=== PATIENT | male | born 1975 | race Caucasian/White ===

== ENCOUNTER 2016-06-20 06:38 | Inpatient (IN) | payer OTHER ==
--- NOTE | 2016-06-19 11:23 | PREOPHP ---
DATE OF ADMISSION: 06/20/2016 TYPE OF CONSULTATION: Preoperative internal medicine consultation/medical history and physical REASON FOR CONSULTATION: Consultation requested by Dr. Boyd Boogie for medical evaluation and lawrence arance of a 40-year-old gentleman about to undergo surgery on his lumbar spine. Thank you, Dr. Boogie, for allowing us to participate in care of this patient. HISTORY OF PRESENT ILLNESS: Chriss Echeverria a 40-year-old gentleman has had 2 prior back surgeries, cur rently being admitted for a third at a different level. Other than his back, he has been relatively healthy. He has had no medical hospitalizations. Also has not had any other surgeries other than his back surgeries. He has fractured his right ankle and as mentioned above, has had no medical hos pitalizations. The patient is being treated for hypertension, currently taking lisinopril HCT 20/ as well as tramadol. ALLERGIES: HE IS NOT ALLERGIC TO ANY MEDICATIONS. SOCIAL HISTORY: The patient is , has 2 children, no grandchildren. He smokes about a pack of cigarettes a day. He has been smoking for 20 years. Alcohol socially. Does not drink coffee. He is employed and usually has no difficulty sleeping at night. FAMILY HISTORY: Both parents are alive, father 70, mother 65. Mother is healthy. Father is a type 2 diabetic and 1 brother is in good health. Family history of diabetes, cancer and hypertension. REVIEW OF SYSTEMS HEENT: Denies any significant headaches. CARDIORESPIRATORY: Denies any chest pain, shortness of breath. GASTROINTESTINAL: No melena or hematemesis. GENITOURINARY: No urgency, frequency. MUSCULOSKELETAL: Positive for back pain. NEUROPSYCHIATRIC: Unremarkable. GENERAL HEALTH: As above. PHYSICAL EXAMINATION: VITAL SIGNS: The patient's blood pressure was 120/70, pulse was 89 and regular, respirations were 1 8, temperature 98.3. Height 5 feet 8 inches, weight 284 pounds. GENERAL: The patient was noted to be a well-developed, well-nourished male, alert and cooperative, in no apparent acute distress, oriented to time, place, and person. HEENT: Head was atraumatic. Eyes: Pupils were equal, reactive to light and accommodation. Fundi were benign. Tympanic membranes were unremarkable. Nose was negative. Mouth was unremarkable. Fa ir oral hygiene was present. NECK: Supple without any rigidity. Trachea was midline. Thyroid was unremarkable. Neck veins wer e flat. Carotid pulses were equal. No bruits were heard. BACK: Revealed scar from prior surgeries. CHEST: Symmetrical. BREASTS AND AXILLARY: Did not reveal any masses. LUNGS: Clear to percussion and auscultation. HEART: PMI is fifth intercostal space at the midclavicular line. A regular sinus rhythm was noted. No significant murmurs, rubs, or gallops being elicited. ABDOMEN: Soft, good bowel sounds were noted. No significant organomegaly, masses, or tenderness. GENITALIA: Normal male external genitalia. RECTAL AND PROSTATIC: Per PCP. EXTREMITIES: Did not reveal any clubbing, edema or cyanosis. Peripheral pulses were physiologic. SKIN: Moist and warm without any eruptions. No gross lymphadenopathy was noted. NEUROLOGIC: Grossly intact. IMPRESSION 1. Lumbar disk disease L2 to L3, post-lumbar spine surgery x2 in the past different levels. 2. Hypertension. 3. Metabolic syndrome with mild hepatic dysfunction. 4. Degenerative joint disease. 5. Stable health. LABORATORY DATA: Review of laboratory and other data revealed the following: The patient's wet chemistry analyst ry panel, most recent one revealed normal electrolytes, glucose, BUN, creatinine. Liver function te sts were somewhat elevated, but improving. The patient had been drinking a little bit too much. Mo st recent AST was 102, ALT 161, on the way down several days prior to his scheduled surgery. Serum iron was normal. CBC, sed rate, UA, PT, PTT were normal. His EKG was normal as was his chest x-ray . DISCUSSION: Dr. Boogie, I see no contraindication in this patient undergoing current proposed oh terell under desired form of anesthesia. I feel he is a suitable candidate at this particular point i n time, and will be more than happy to follow him along with you during his stay at [facility]. Thank you again, Dr. Boogie, for allowing us to participate in care of this patient. Dictated By: YESSI CLAUDIO/ARNOLDO Conf#: [id number] DID#: [id number]
[2016-06-20] VITALS (27 sets, daily range): BP systolic 80–141; BP diastolic 51–85; PULSE 90–109; RESP 15–25; Ht 172.7 cm; Wt 127.0 kg
[~2016-06-20] VITALS: Ht 172.7 cm; Wt 127.0 kg
[~2016-06-20 06:38] MED LIST: LISI20TA11 PO; MELO-109 PO; TRAM50TA2 PO
[2016-06-20] MEDS ORDERED: LACTATED RINGER'S 1,000 ML IV* SCH ×2 (07:00)
[2016-06-20] MEDS ORDERED: CEFAZOLIN 2 GM/50 ML (PMX) 50 ML IVPB ONE (07:00)
[2016-06-20] MEDS ORDERED: HYD25 PO (07:48)
--- NOTE | 2016-06-20 09:23 | HPN ---
Date/Time of Note Date/Time of Note DATE: 06/20/16 TIME: 09:22 Interval H&P Admission Note Pt. seen H&P reviewed: No system changes FIDEL LONG MD Jun 20, 2016 09:23
[2016-06-20] MEDS ORDERED: BUPIVACAINE 0.25% (MPF) 10 ML 10 ML VIAL ONE (09:24)
[2016-06-20] MEDS ORDERED: POLYMYXIN/BACITRACIN 1L IRRIG ONE (09:24)
[2016-06-20] MEDS ORDERED: GELATIN SIZE 100 SPONGE ONE (09:24)
[2016-06-20] MEDS ORDERED: THROMBIN 5000 UNIT VIAL ONE (09:24)
[2016-06-20] MEDS ORDERED: MIDAZOLAM 1 MG/ML 2 ML INJ ONE (09:52)
[2016-06-20] MEDS ORDERED: PHENYLephrine (100 MCG/ML) 5ML SYG ONE ×3 (10:01→11:33)
[2016-06-20] MEDS ORDERED: ROCURONIUM 50 MG INJ ONE (10:25)
[2016-06-20] MEDS ORDERED: LIDOCAINE 2% (SDV) 5 ML INJ ONE (10:25)
[2016-06-20] MEDS ORDERED: SUCCINYLCHOLINE CHLORIDE 100 MG/5 ML SYG IV ONE (10:25)
[2016-06-20] MEDS ORDERED: PROPOFOL 40 ML ONE (10:25)
[2016-06-20] MEDS ORDERED: GELATIN SIZE 100 SPONGE TOP ONE (10:35)
[2016-06-20] MEDS: CEFAZOLIN 1 GM INJ ONE ×2 (10:35→13:44)
[2016-06-20] MEDS ORDERED: THROMBIN 5000 UNIT VIAL TOP ONE (10:35)
[2016-06-20] MEDS ORDERED: BUPIVACAINE 0.25% (MPF) 10 ML 10 ML VIAL INJ ONE (10:35)
[2016-06-20] MEDS ORDERED: HEPARIN 1000 UNITS/ML 10 ML INJ ONE (10:39)
[2016-06-20] MEDS ORDERED: METOCLOPRAMIDE 10 MG INJ ONE (10:52)
[2016-06-20] MEDS ORDERED: ONDANSETRON 4 MG INJ ONE (10:52)
[2016-06-20] MEDS ORDERED: HYDROmorphONE 2 MG/ML SYG ONE (10:52)
[2016-06-20] MEDS ORDERED: FAMOTIDINE 20 MG INJ ONE (10:52)
[2016-06-20] MEDS ORDERED: DEXAMETHASONE 4 MG/ML 1 ML INJ ONE (10:52)
[2016-06-20] MEDS ORDERED: GLYCOPYRROLATE 1 MG INJ ONE (10:52)
[2016-06-20] MEDS ORDERED: NEOSTIGMINE 3 MG/3 ML SYRINGE ONE (10:52)
[2016-06-20] MEDS ORDERED: CEFAZOLIN 1 GM INJ ONE (13:33)
--- NOTE | 2016-06-20 14:31 | RADRPT ---
PROCEDURE: Intraoperative imaging of the lumbar spine with fluoroscopy. CLINICAL INDICATION: Back pain. Intraoperative. TECHNIQUE: 8 images of the lumbar spine were obtained in the operating room with an image intensif ier. No radiologist was in attendance. 40.3 seconds of fluoroscopy time was used. COMPARISON: No prior study is available for comparison. FINDINGS: For the purposes of this report, the last apparent true disc level is considered to be L5-S1. Based on this, pedicle screws are inserted at L2 and L3. An intervertebral cage is present at the L2-3 l evel. IMPRESSION: 1. Intraoperative imaging of the lumbar spine. RPTAT: QQ .Lee De La Cruz MD, MD Date Time Electronically viewed and signed by .Lee De La Cruz MD, on 06/20/2016 14:31 .R/
[2016-06-20] MEDS: FENTAnyl 50 MCG/ML VIAL IV PRN ×2 (14:56→15:14)
[2016-06-20] MEDS: HYDROmorphONE (0.2 MG/ML) 10ML SYG IV PRN ×2 (14:57→15:14)
[2016-06-20] MEDS ORDERED: MEPERIDINE 25 MG INJ IV PRN (15:00)
[2016-06-20] MEDS ORDERED: HYDROmorphONE (0.2 MG/ML) 10ML SYG IV PRN ×2 (15:00)
[2016-06-20] MEDS ORDERED: DIPHENHYDRAMINE 50 MG INJ IV PRN (15:00)
[2016-06-20] MEDS ORDERED: PROCHLORPERAZINE 10 MG INJ IV PRN (15:00)
[2016-06-20] MEDS ORDERED: ONDANSETRON 4 MG INJ IV PRN ×2 (15:00→15:30)
[2016-06-20] MEDS ORDERED: FENTAnyl 50 MCG/ML VIAL IV PRN ×2 (15:00)
[2016-06-20] MEDS: DEXTROSE 5%-0.45% NACL 1,000 ML IV SCH ×3 (15:12→23:18)
--- NOTE | 2016-06-20 15:12 | OPPN ---
Date/Time of Note Date/Time of Note DATE: 06/20/16 TIME: 15:07 Operative/Procedure Note Pre-Operative Diagnosis Recurrent disc herniation at L2-3 on the left Post laminectomy syndrome Post-Operative Diagnosis Same Procedure Transforaminal lumbar interbody fusion L2-3 with pedicle screws and rods and interbody cage Redo decompressive laminectomy L2 Revision of scar (10 cm) Intraoperative fluoroscopy Intraoperative nerve monitoring (4 hours) Surgeon: FIDEL LONG MD Lamination Technician: ADELAIDE WAHL Anesthesiologist: CINDY CORCORAN MD Findings At surgery a small recurrent disc herniation at L2-3 on the left was confirmed Blood Usage/Administration 150 cc of Cell Saver blood was given Implants/Grafts 4 5.5 mm in diameter 40 mm long variable angle RTI pedicle screws 2 lordotic rods (one 40 mm one 50 mm) 11 mm peek interbody cage at L2-3 Cynthia 3 bone graft substitute Estimated blood loss: other Drains 2 medium Hemovac drains employed Specimens L2-3 disc material Complications: None Anesthesia type: general FIDEL LONG MD Jun 20, 2016 15:12
[2016-06-20] MEDS ORDERED: HYDROmorphONE 0.2 MG/ML PCA ONE (15:20)
[2016-06-20] MEDS: HYDROmorphONE 0.2 MG/ML PCA IV SCH (15:27)
[2016-06-20] MEDS ORDERED: AL HYDROX/MG HYDROX/SIMETH 30 ML CUP PO PRN (15:30)
[2016-06-20] MEDS ORDERED: ZOLPIDEM 5 MG TAB PO PRN (15:30)
[2016-06-20] MEDS ORDERED: DIAZEPAM 5 MG TAB PO PRN (15:30)
[2016-06-20] MEDS ORDERED: DIAZEPAM 5 MG/ML SYG IM PRN (15:30)
[2016-06-20] MEDS ORDERED: NACL 0.9% 3 ML SYG IV SCH (15:30)
[2016-06-20] MEDS ORDERED: CEPASTAT LOZENGE MT PRN (15:30)
[2016-06-20] MEDS ORDERED: ACETAMINOPHEN 325 MG TAB PO PRN (15:30)
[2016-06-20] MEDS ORDERED: BETHANECHOL 25 MG TAB PO PRN (15:30)
[2016-06-20] MEDS ORDERED: PROCHLORPERAZINE 10 MG TAB PO PRN (15:30)
[2016-06-20] MEDS ORDERED: TRIMETHOBENZAMIDE 100 MG/ML VIAL IM PRN (15:30)
[2016-06-20] MEDS ORDERED: HYDROCODONE/APAP (5/325) TAB PO PRN (15:30)
[2016-06-20] MEDS ORDERED: DIPHENHYDRAMINE 50 MG CAP PO PRN (15:30)
[2016-06-20] MEDS ORDERED: NALOXONE (0.4 MG/ML) INJ IV PRN (15:30)
--- NOTE | 2016-06-20 16:06 | OPR ---
DATE OF OPERATION: 06/20/2016 PREOPERATIVE DIAGNOSES: 1. Recurrent disk herniation, L2-L3 on the left. 2. Post-laminectomy syndrome. POSTOPERATIVE DIAGNOSES: 1. Recurrent disk herniation L2-3 on the left. 2. Post-laminectomy syndrome. OPERATION PERFORMED: 1. Transforaminal lumbar interbody fusion, L2-L3, with pedicle screws and rods and interbody cage. 2. Re-do decompressive laminectomy at L2. 3. Revision of scar (10 cm). 4. AP and lateral intraoperative fluoroscopy. 5. Intraoperative nerve monitoring (4 hours). SURGEON: Boyd Boogie MD APPARATUS CLEANER: FAIZAN Grajeda ANESTHESIA: General endotracheal. ANESTHESIOLOGIST: Jailene Agustin MD ESTIMATED BLOOD LOSS: 500 mL -- 150 mL of Cell Saver blood returned. DRAINS: Two medium Hemovac drains employed. COMPLICATIONS: None. PERTINENT HISTORY AND PHYSICAL: This is a 40-year-old male who sustained an injury to his back in t he course of employment on 01/16/2012. He has had extensive care since that time, including prior l umbar surgeries. He has undergone a number of diagnostic studies, which have demonstrated a recurre nt disk herniation at L2-L3 on the left with post-laminectomy syndrome. He has undergone a number o f diagnostic studies. Treatment options were discussed with the patient, and he elected to proceed with surgery. OPERATIVE FINDINGS AT SURGERY: Diffuse bulging disk at L2-L3 with a small recurrent herniation at L 2-L3 on the left was confirmed. The baseline intraoperative nerve monitoring revealed a decrease in the left L2 potential of 30% and the left L3 potential of 40%. These both returned to normal at th e completion of surgery. OPERATIVE PROCEDURE: With the patient in supine position after satisfactory induction of general en dotracheal anesthesia by Dr. Agustin, the patient was turned to the prone position onto the radiolucent Antonio frame atop the OSI fluoroscopic table. All pressure points were carefully padded. Back was prepped and draped in usual sterile fashion. Athrombic pumps were applied to the legs below the kn ees to prevent venous stasis during and after the surgery. An indwelling Kirkland catheter was also pl aced preoperatively to facilitate bladder drainage during and after the procedure. A 10-cm incision was carried out midline using the previous scar at L2-L3 as anatomic landmark, thro ugh skin and subcutaneous tissue to the fascia. Superficial retractors were placed, and hemostasis secured with electrocautery. Throughout the procedure, copious amounts of antibacterial irrigating solution were used to periodically irrigate the wound. The skin was infiltrated with 0.25% Marcaine without epinephrine for postoperative analgesia. The fascia was incised in midline with a hot knif e, and a bilateral subperiosteal dissection carried out at L2-L3. Deep retractors were placed, and deep hemostasis secured with electrocautery. An intraoperative radiograph was taken with Andrea cla mps, placed in what was felt to be the spinous process of L2 and L3. This confirmed on the intraope rative fluoroscopic image. A central decompressive laminectomy at L2 was then carried out using a Ivelisse reyes right-angle bone rongeur, Leksell rongeur, Kerrison punches, and curettes. The bone was mors elized and used later on in the procedure. The subtotal facetectomy was then carried out at L2-L3 b ilaterally using Kerrison punches and Leksell rongeur. The operating microscope then moved into [facility]. Attention was turned to the L2-L3 disk on the right, where the L3 root was mobilized medially and pr otected with Umang'Neil nerve retractor using microdissection technique. A 15 blade knife used to cut a rectangular window in the annulus and posterior longitudinal ligament, and multiple degenerative disk fragments were harvested with pituitary rongeurs and sent to laboratory for pathologic study. Additional fragments were harvested using Vj curettes. The RTI disk alli were then inserted into the disk space starting with the 7 shaver and moving up to an 11 shaver. The 7, 8, 9, 10, and 11 trials were also used, and the 11 trial appeared to be the appropriate size. The rasps were use d to abrade the cartilaginous endplates down to subchondral bleeding bone. An 11-mm PEEK cage was t hen filled with map3 bone growth substitute, and inserted into the disk space over morselized bone f ragments that were inserted into the anterior aspect of the disk space, and additional pieces of map 3 bone growth substitute. Cage was imaged in AP and lateral fluoroscopic planes, and appeared to be in appropriate position. The pedicles of L2 and L3 were then identified, and a 5.5 mm wide x 40 mm long variable angle RTI screws were inserted into the L2 and L3 pedicles bilaterally using fluorosc opic imaging in AP and lateral projections for verification. With this having been accomplished, th e screws were checked for electrical isolation to 20 microamps of current and were electrically isol ated from surrounding tissues. One 40-mm maryann on the right and a 50-mm maryann on the left were then use d to connect the L2 and L3 pedicle screws, and the L3 screws were tightened to factory specification s using the torque wrench, and the L2 screws were then tightened with the locking nuts after the con struct was put under compression bilaterally. Final AP and lateral images were confirmed fluoroscop ically, and the wound was then closed in layers over 2 medium Hemovac drains, one below the fascia, one above the fascia using #1 Vicryl Stratafix sutures on the deep paralumbar musculature and deep f ascia of back, 2-0 Vicryl Stratafix sutures in the subcu tissue, and a 4-0 Vicryl subcuticular melani tic closing suture on the skin. Dermabond and sterile compressive dressings were applied. Patient having tolerated procedure well, was then turned to supine position onto his bed, and extubated by Umang Agustin. He was transported to the recovery room in satisfactory condition. At the conclusion of t he procedure, sponge, instrument, and needle counts were all correct. NEED FOR MEDIA DIRECTOR: During this spinal surgical procedure, my research study assistant was used to retrac t and protect the spinal nerves and dural sac. My research study assistant also employed the suction catheters to e vacuate blood from the surgical field to improve visualization of the neural structures. The assista nt was medically necessary to facilitate the completion of the surgery in a safe and expeditious man ner. State of [place] regulations, as well as hospital bylaws, preclude the use of non-licensed h [facility] care personnel such as operating room technicians, to perform these functions. Throughout the procedure, neuromonitoring was carried out by [employer] in cluding EMG, SSEP and MEP monitoring of the L2, L3, L4, L5, and S1 nerve roots bilaterally along wit h spinal cord potentials. These were interpreted by neurologists employed by [employer]. Dictated By: BOYD BALDWIN/ARNOLDO Conf#: [id number] DID#: [id number] CC: jarrod Alexander;*EndCC*
--- NOTE | 2016-06-20 16:22 | CONS ---
DATE OF ADMISSION: 06/20/2016 DATE OF CONSULTATION: 06/20/2016 POSTOPERATIVE CONSULT FOLLOWUP HISTORY OF PRESENT ILLNESS: The patient is seen in the recovery room, alert, talking, requesting ni cotine patch and his blood pressure pills. He feels relatively well postoperatively. PHYSICAL EXAMINATION: VITAL SIGNS: Temperature is 99, pulse 97, blood pressure 106/54, O2 99% on nasal cannula. HEENT: Unremarkable. LUNGS: Clear. HEART: Reveals regular rhythm. IMPRESSION: 1. Status post lumbar spine surgery. 2. Hypertension. 3. Smoker. DISCUSSION: Plan is to follow this patient with you. I have taken the liberty of ordering his allie nopril as well as a nicotine patch 21 mg to hold him daily while he is recovering and not able to sm aggie. We will follow him along with you during his stay at [facility]. Thank you again, Dr. Boogie, for allowing us to participate in the care of this patient. Dictated By: YESSI CLAUDIO/ARNOLDO Conf#: [id number] DID#: [id number]
[2016-06-20] MEDS: CEFAZOLIN 1 GM/50 ML (PMX) 50 ML IVPB SCH ×2 (17:39→23:18)
[2016-06-20] MEDS: NICOTINE (21 MG/24 HR) PATCH TRANSDERM SCH (18:01)
[2016-06-20] MEDS: RANITIDINE 150 MG TAB PO SCH (21:30)
[2016-06-21] MEDS: HYDROmorphONE 0.2 MG/ML PCA IV SCH (02:14)
[2016-06-21 05:14] LABS: HEMATOCRIT 33.6 % (42.0-52.0)
[2016-06-21] MEDS: CEFAZOLIN 1 GM/50 ML (PMX) 50 ML IVPB SCH ×3 (05:16→12:50)
[2016-06-21 05:40] LABS: POTASSIUM 4.4 mmol/L (3.5-5.1)
[2016-06-21 05:42] LABS: CREATININE 0.77 mg/dl (0.61-1.24)
[2016-06-21 05:43] LABS: CALCIUM 8.4 mg/dl (8.4-10.2)
--- NOTE | 2016-06-21 07:11 | PN ---
Date/Time of Note Date/Time of Note DATE: 06/21/16 TIME: 07:10 Assessment/Plan Lines/Catheters IV Catheter Type (from Nrs): Peripheral IV Kirkland in Place (from Nrs): Yes Subjective 24 Hr Interval Summary The patient is postop day #1 following a redo laminectomy and fusion at L2-3 with pedicle screws and rods. He is afebrile and comfortable in bed. Neurovascular structures are intact distally. His morning lab work is unremarkable. He has a Kirkland catheter in place. Physical therapy will ambulate him 4 times today with a walker until he is independent. His Kirkland will be discontinued. We will taper his postop analgesics. Exam/Review of Systems Vital Signs Vitals Vital Signs Date Time Temp Pulse Resp B/P Pulse Ox O2 Delivery O2 Flow Rate FiO2 06/21/16 05:00 20 06/20/16 19:39 98.4 90 104/62 99 06/20/16 18:45 Nasal Cannula 2.0 Intake and Output 06/20/16 06/20/16 06/21/16 15:00 23:00 07:00 Intake Total 3950 ml 2700 ml Output Total 665 ml 0 ml 2750 ml Balance 3285 ml 0 ml -50 ml Results Result Diagram: 06/21/16 0420 06/21/16 0420 FIDEL LONG MD Jun 21, 2016 07:11
[2016-06-21] MEDS ORDERED: BETHANECHOL 25 MG TAB PO PRN (08:00)
[2016-06-21 08:36] VITALS: BP 110/65; RESP 18
[2016-06-21] MEDS: LISINOPRIL 20 MG TAB PO SCH (08:44)
[2016-06-21] MEDS: HYDROCODONE/APAP (5/325) TAB PO PRN ×2 (08:48→19:20)
[2016-06-21] MEDS: RANITIDINE 150 MG TAB PO SCH ×2 (08:49→20:52)
[2016-06-21] MEDS: DOCUSATE SODIUM 100 MG CAP PO SCH ×2 (08:49→20:52)
[2016-06-21] MEDS: ASCORBIC ACID 500 MG TAB PO SCH ×2 (08:49→20:52)
[2016-06-21] MEDS: FERROUS SULFATE (EC) 325 MG TAB PO SCH ×3 (08:49→20:52)
[2016-06-21] MEDS: NICOTINE (21 MG/24 HR) PATCH TRANSDERM SCH (08:52)
--- NOTE | 2016-06-21 09:40 | CONS ---
DATE OF ADMISSION: 06/20/2016 DATE OF CONSULTATION: TYPE OF CONSULTATION: Postoperative consult followup. TIME OF CONSULTATION: Approximately 7:45 a.m. The patient had a relatively good night, complaining of some discomfort. Other than that, he is doi ng quite nicely. PHYSICAL EXAMINATION: VITAL SIGNS: Revealed the following blood pressure 110/65, pulse 94, respirations 18, temperature 9 7.4, O2 saturation 98%. HEENT: Unremarkable. LUNGS: Clear. HEART: Reveals a regular rhythm. ABDOMEN: Mild distention. IMPRESSION: 1. Status post lumbar spine surgery. 2. Hypertension. DISCUSSION: Review of laboratory and other data revealed the following: The patient's hemoglobin i s 12, hematocrit 33. Electrolytes: BUN, creatinine and glucose are normal. DISCUSSION: The patient is doing relatively well. Management per Dr. Boogie. In terms of his me dical status stable at this particular point in time. Thank you again, Dr. Boogie, for allowing us to participate in care of this patient. Dictated By: YESSI CLAUDIO/ARNOLDO Conf#: [id number] DID#: [id number]
[2016-06-21] MEDS: DEXTROSE 5%-0.45% NACL 1,000 ML IV SCH ×2 (10:01→20:53)
[2016-06-21 13:06] LABS: ADD UMIC NO; URINE BILIRUBIN (Dip) NEGATIVE (NEGATIVE); URINE BLOOD (Dip) NEGATIVE (NEGATIVE); URINE COLOR LT. YELLOW (YELLOW); URINE GLUCOSE (Dip) NEGATIVE (NEGATIVE); URINE KETONES (Dip) NEGATIVE (NEGATIVE); URINE LEUKOCYTE ESTERASE (Dip) NEGATIVE (NEGATIVE); URINE NITRITE (Dip) NEGATIVE (NEGATIVE); URINE TOTAL PROTEIN (Dip) NEGATIVE (NEGATIVE); URINE UROBILINOGEN (Dip) 1.0 E.U./dL (0.1-1.0)
[2016-06-21 20:15] VITALS: BP 111/57; RESP 20
[2016-06-22] MEDS: HYDROCODONE/APAP (5/325) TAB PO PRN ×2 (02:37→08:20)
[2016-06-22] MEDS: DEXTROSE 5%-0.45% NACL 1,000 ML IV SCH (07:12)
--- NOTE | 2016-06-22 07:18 | PN ---
Date/Time of Note Date/Time of Note DATE: 06/22/16 TIME: 07:16 Assessment/Plan Lines/Catheters IV Catheter Type (from Nrsg): Saline Lock Kirkland in Place (from Nrsg): Yes Subjective 24 Hr Interval Summary Patient is postop day #2 from lumbar fusion. His therapy has been delayed due to brace that was not fitting appropriately. Proper brace was ordered yesterday and patient hopefully will be fitted later this morning for. He has been up ambulating with physical therapy with a corset. Vital signs are stable. Hemovac drain over the last 12 hours was 50 cc, this was discontinued. Incision is healing well. Neurovascular structures distally are intact. He is tolerating diet well and is voiding. Plan for today is to progress ambulation further after he is fitted for larger brace. Hopefully he can be discharged later today once he is cleared by physical therapy and internal medicine Exam/Review of Systems Vital Signs Vitals Vital Signs Date Time Temp Pulse Resp B/P Pulse Ox O2 Delivery O2 Flow Rate FiO2 06/21/16 20:15 98.3 104 20 111/57 99 06/20/16 18:45 Nasal Cannula 2.0 Intake and Output 06/21/16 06/21/16 06/22/16 15:00 23:00 07:00 Intake Total 550 ml 2050 ml 1500 ml Output Total 5 ml 4 ml Balance 550 ml 2045 ml 1496 ml Results Result Diagram: 06/21/16 0420 06/21/16 0420 MARCIN DOMÍNGUEZ 3, 2017 07:18
[2016-06-22] MEDS: RANITIDINE 150 MG TAB PO SCH (08:20)
[2016-06-22] MEDS: DOCUSATE SODIUM 100 MG CAP PO SCH (08:20)
[2016-06-22] MEDS: ASCORBIC ACID 500 MG TAB PO SCH (08:20)
[2016-06-22] MEDS: FERROUS SULFATE (EC) 325 MG TAB PO SCH (08:20)
[2016-06-22] MEDS: NICOTINE (21 MG/24 HR) PATCH TRANSDERM SCH (08:21)
[2016-06-22] MEDS: LISINOPRIL 20 MG TAB PO SCH (08:21)
[2016-06-22 08:32] VITALS: BP 97/54; RESP 20
--- NOTE | 2016-06-22 08:34 | CONS ---
DATE OF ADMISSION: 06/20/2016 DATE OF CONSULTATION: 06/22/2016 POSTOPERATIVE CONSULTATION FOLLOWUP SUBJECTIVE: The patient is alert, doing quite nicely, had a good night, was seen by Dr. Boogie, a nd probably will be going home today after being cleared by physical therapy. OBJECTIVE: VITAL SIGNS: At least the last set available reveals the patient's temperature 98.3, pulse is 90s, respiratory rate 20, blood pressure 111/57, O2 sat 99%. HEENT: Unremarkable. LUNGS: Clear. HEART: Reveals a regular rhythm. ABDOMEN: Unremarkable. IMPRESSION: 1. Status post lumbar spine surgery. 2. Hypertension. 3. Hepatic dysfunction. DISCUSSION: No laboratory available today; however, the patient has been ambulating and is doing we ll and will probably be going home today. Thank you again, Dr. Boogie, for allowing us to participate in the care of this patient. Dictated By: YESSI CLAUDIO/ARNOLDO Conf#: [id number] DID#: [id number]
--- NOTE | 2016-06-25 09:39 | DS ---
Date/Time of Note Date/Time of Note DATE: 06/25/16 TIME: 09:37 Discharge Summary Admission/Discharge Info Admit Date/Time Jun 20, 2016 at 06:38 Discharge Date/Time Jun 22, 2016 at 13:00 Final Diagnosis 1. Recurrent disk herniation, L2-L3 on the left. 2. Post-laminectomy syndrome. Patient Condition: Fair Hospital Course Pt did well after Lumbar fusion. His pain was well controlled. Diet and activity were advanced as tolerated. He was discharged to home in good condition on POD #2 Home Meds Reported Medications Hydrochlorothiazide* (Hydrochlorothiazide*) 25 Mg Tab, 25 MG PO DAILY, #30 TAB 06/20/16 Lisinopril* (Lisinopril*) 20 Mg Tablet, 20 MG PO DAILY, #30 TAB 06/29/15 Tramadol HCl (Tramadol HCl) 50 Mg Tablet, 50 MG PO DAILY Y for PAIN, #60 TAB 06/29/15 Discontinued Reported Medications Meloxicam* (Meloxicam*) 7.5 Mg Tablet, 7.5 MG PO DAILY, #30 TAB 06/29/15 Follow-up Plan Follow up with in 2 weeks. MARCIN DOMÍNGUEZ Jun 25, 2016 09:39
== END 2016-06-22 13:00 | disposition home or self-care (01) | DRG 460 ==
LOC: REC 06:38 → MS1 15:55
PROVIDERS: ADMIT Orthopaedic Surgery; ATTEND Orthopaedic Surgery
PROC: 0SB20ZZ Excision of Lumbar Vertebral Disc, Open Approach (ICD-10-PCS; 2016-06-20)
PROC: 30233H0 Transfusion of Autologous Whole Blood into Peripheral Vein, Percutaneous Approach (ICD-10-PCS; 2016-06-20)
PROC: 0SG00A1 (ICD-10-PCS; principal; 2016-06-20 10:00)
DX: M96.1 Postlaminectomy syndrome, not elsewhere classified (principal); I10 Essential (primary) hypertension; M51.26 Other intervertebral disc displacement, lumbar region; F17.200 Nicotine dependence, unspecified, uncomplicated
CPT/HCPCS: 72114; 80048; 81003; 85014; 85018; 86850; 86900; 86901; 86920; 87086; 97116; 97162; 97530; C1713; J0330; J0690; J1100; J1170; J1644; J2250; J2370; J2405; J2710; J2765; J3010; J7042; J7120